=== PATIENT | female | born 1950 | race Caucasian/White ===

== ENCOUNTER → 2018-04-11 | Outpatient (CLI) | payer MEDICARE, OTHER | END | disposition home or self-care (01) | LOC: LAB 13:15 → LAB SHORT 13:15 | DX: L08.9 Local infection of the skin and subcutaneous tissue, unspecified (principal) | CPT/HCPCS: 87070; 87205 ==

== ENCOUNTER 2024-02-23 10:19 | Day surgery (SDC) | payer MEDICARE, OTHER ==
[~2024-02-23] VITALS: Ht 162.6 cm; Wt 80.8 kg
[~2024-02-23 10:19] MED LIST: ASPIR 8181 M1 PO; CeFAZolin Sodium 2,000 MG VIAL ONE; DOCU100 PO; DOLOPHINE HCL PO; ESTRADIOL PO; FURO20 PO; LEVSOD25 PO; Lactated Ringer's 1,000 ML IV ONE; Lidocaine 2% 5 ML SDV ONE; NS 50 ML IV ONE; OXYC5 PO; POTA10T PO; Prinivil10 MG PO; TIZANIDINE HCL212 PO; ZOCOR20 MG PO
[2024-02-23] MEDS ORDERED: Bupivacaine HCl 0.25% 30 ML Injection ONE (11:03)
[2024-02-23] MEDS ORDERED: Midazolam HCl 1MG / ML 2ML Vial ONE (11:03)
[2024-02-23] MEDS ORDERED: Lactated Ringer's 1,000 ML IV ONE (11:04)
--- NOTE | 2024-02-23 11:20 | NUR ---
02/23/24 1120 Jennifer Venegas TIME OUT AT BEDSIDE AT [address] BALL FOR NERVE BLOCK. CORRECT PATIENT, PROCEDURE, AND SITE IDENTIFIED PER PT AND CONSENT FORM. NERVE BLOCK PROCEDURE STARTED AT 11:12. END PROCEDURE TIME AT 11:17. NO ISSUES NOTED AND PT TOLERATED WELL. NURSE HAN Cool RN AND NURSE SUKHI Zelaya RN IN ROOM ASSISTING DR. BALL.
[2024-02-23] MEDS ORDERED: propofoL 20 ML IV ONE (12:38)
[2024-02-23 13:43] VITALS: BP 130/95
== END 2024-02-23 13:39 | disposition home or self-care (01) ==
LOC: ORSCSDS 10:19
PROVIDERS: Orthopaedic Surgery
PROC: 01N40ZZ Release Ulnar Nerve, Open Approach (ICD-10-PCS; principal; 2024-02-23 12:00)
DX: G56.21 Lesion of ulnar nerve, right upper limb (principal); I10 Essential (primary) hypertension; E03.9 Hypothyroidism, unspecified; E78.5 Hyperlipidemia, unspecified; Z87.891 Personal history of nicotine dependence; Z79.899 Other long term (current) drug therapy
CPT/HCPCS: J0690; J2250; J2704; J7120